=== PATIENT | female | born 2000 | race Caucasian/White ===

== ENCOUNTER 2018-10-13 14:57 | Emergency (ER) | payer OTHER, SELFPAY ==
[2018-10-13 14:57] VITALS: BP 103/56; PULSE 75; RESP 16; TEMP 36.7; O2SAT 100; BMI 20.7
--- NOTE | 2018-10-13 15:16 | ED.DCSUM_ITS ---
- ER Visit Summary Date of Service: 10/13/18 Chief Complaint: Left rib pain History of Present Illness: The patient is a 17 F who has pain in the left lower ribs. She fell off of a horse this afternoon and the horse stepped on her left lower ribs. No head trauma or LOC. She has pain in the left lower rib area. This pain is worse with breathing. She took 2 Motrin after it happened but continued to have pain. Denies any other symptoms. Physical Examination: Vital signs are reviewed. HEENT exam atraumatic. Heart is regular rate and rhythm. Lungs are clear to auscultation. She does have left lower rib tenderness to palpation. Abdomen is soft and nontender. Back is nontender. GCS 15. Neurologic exam normal. Test Results: Rib series reveals fractures of the ninth and 10th rib on the left-hand side Emergency Department Course and Treatment: Patient was given [place] for pain. She will continue [place] at home. She was counseled on taking deep breaths at home. She will follow-up with her doctor Treatment Plan: [] Disposition: Discharge Impression: Left rib fractures This note was generated with [employer] dictation software. It may contain incorrect words, spelling, and punctuation that were not noted in review of the chart prior to signing ED Disposition - Plan for ED Patient: Referrals: [facility] Doctor,Out of [Primary Care Provider] -
[2018-10-13] MEDS: HYDROcodone Bitartrate/Apap 5/325 Tablet PO (15:19)
--- NOTE | 2018-10-13 15:28 | RAD_ITS ---
STUDY: X-RAY - UNILATERAL RIBS ( LEFT ) WITH CHEST REASON FOR EXAM: Female, 17 years old. Left-sided rib pain following a fall. TECHNIQUE - RIBS: 4 view(s) of the ribs. TECHNIQUE - CHEST: Single PA view of the chest. COMPARISON: None. FINDINGS - RIBS: Normal visualized ribs without a demonstrated fracture. FINDINGS - CHEST: The lungs are clear and expanded. There is no demonstrated pleural abnormality. Normal size heart. Normal mediastinum and aldo. Normal visualized pulmonary arteries. Normal visualized aortic arch and descending thoracic aorta. Normal visualized thoracic spine. Nondisplaced fractures of the left ninth and 10th ribs anterolaterally. There is no demonstrated abnormality of the visualized soft tissue structures of the upper abdomen. RAD/Ribs Uni Min 3V w/PA Chest IMPRESSION: RIBS: Nondisplaced fractures involving the anterior lateral aspect of the left ninth and 10th ribs. CHEST: Normal x-ray examination of the chest. Electronically Signed: Derian Timmons, at 15:41 EDT , Service support ,
--- NOTE | 2018-10-13 15:54 | DCINST.ED_ITS ---
ED Disposition - Plan for ED Patient: Disposition: Home or Assisted Living Instructions: ED Fx Rib Prescriptions: Hydrocodone Bitart/Apap 5-325 [[place] 5MG-325MG] 1 tab PO Q6H PRN PRN 3 Days #12 tab PRN Reason: Pain Referrals: [facility] Doctor,Out of [Primary Care Provider] -
[2018-10-13 15:58] VITALS: RESP 18
== END 2018-10-13 15:58 | disposition home or self-care (01) ==
PROVIDERS: Emergency Provider Emergency Medicine
DX: S22.42XA Multiple fractures of ribs, left side, initial encounter for closed fracture (principal); W55.19XA Other contact with horse, initial encounter; Y93.52 Activity, horseback riding; Y92.9 Unspecified place or not applicable
CPT/HCPCS: 71101; 99283